=== PATIENT | female | born 1945 | race Caucasian/White ===

== ENCOUNTER → 2017-03-19 | Outpatient (CLI) | payer OTHER ==
[~2017-03-19] MED LIST: AMBIEN 5 MG TABL5 M1 PO; AMITRIPTYLINE H50 M3 PO; B12INJ IM; CALCIUM + VITA1 EACH PO; CVS BUFFERED A325 MG PO; DOXYCYCLINE 10100 MG PO; EXCEDRIN CAPLE1 EACH PO; LIPITOR40 MG PO; LIPITOR80 MG PO; MS CONTIN15 MG PO; MUPIROCIN15 GM; NEURONTIN 300300 M1 PO; PERCOCET PO; PRILOSEC 20 MG20 MG PO; PRILOSEC20 MG PO; TRI-BUFFERED A325 M1 PO; ULTRA-LIGHT RO1 EACH MC; VITAMIN B122500 MCG SUBQ; ZOLOFT50 MG PO
== END ==
LOC: NUC 09:44
DX: M25.562 Pain in left knee (principal); M79.89 Other specified soft tissue disorders; E78.5 Hyperlipidemia, unspecified; E78.00 Pure hypercholesterolemia, unspecified; Z90.710 Acquired absence of both cervix and uterus; Z96.652 Presence of left artificial knee joint

== ENCOUNTER 2017-05-07 05:19 | Inpatient (IN) | payer OTHER ==
[2017-04-21 13:06] LABS: HEMATOCRIT 40.9 % (37.0-47.0); HEMOGLOBIN 13.7 gm/dL (12.0-15.0); MCH 29.5 pg (26.0-34.0); MCHC 33.5 g/dL (28.0-37.0); RBC 4.65 mil/uL (4.20-5.00); RDW 14.5 % (10.5-14.5); URINE BILIRUBIN NEGATIVE (Negative); URINE BLOOD NEGATIVE (Negative); URINE CLARITY CLEAR; URINE COLOR YELLOW; URINE GLUCOSE-RANDOM* NEGATIVE (Negative); URINE KETONES NEGATIVE (Negative); URINE NITRITE-REFLEX NEGATIVE (Negative); URINE PROTEIN (DIPSTICK) NEGATIVE (Negative); URINE SPECIFIC GRAVITY <= 1.005 (1.005-1.035); URINE UROBILINOGEN 0.2 E.U./dl (0.2-1.0); WBC 7.3 thou/uL (4.0-11.0)
[2017-04-21 13:08] LABS: URINE LEUKOCYTES-REFLEX TRACE (Negative)
[2017-04-21 13:15] LABS: ALBUMIN 3.9 g/dL (3.4-5.0); CREATININE 0.8 mg/dL (0.6-1.0); POTASSIUM 3.8 mmol/L (3.5-5.1)
[2017-04-21 13:23] LABS: PROTIME 9.9 Seconds (9.3-11.4)
[~2017-05-07] VITALS: Ht 165.1 cm; Wt 72.1 kg
--- NOTE | ~2017-05-07 | S ---
[facility] [place] [address] SURGICAL PATH RPT PROCEDURE Name: BETZY PARRY Room #: 403-P ADM IN M.R.#: [id number] Admission: 05/07/17 Date of : 49 Discharge: Report #: [id number] Path Case #: [id number] PATHOLOGY REPORT COLLECTION DATE: 05/07/2017 RECEIVED DATE: 05/07/2017 SUBMITTING PHYS: Dr. Andry Birmingham OTHER PHYS: Dr. 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 - No significant increase in neutrophils within the acute inflammation (1-2/high powered field). (IUV:mgr; 05/08/2017) PATHOLOGIST: Beatriz Henderson M.D. REPORT ELECTRONICALLY SIGNED BY: Beatriz Henderson M.D. DATE/TIME: 05/08/2017 16:15 * * * * * * * * * * * * GROSS PATHOLOGY: Received fresh from the OR for frozen section is a container labeled with the patient's name, medical record number, and "left knee synovium". The specimen consists of an unoriented portion of soliz-pink fibrofatty tissue measuring 6.4 x 4 x 1.2 cm. A cash application representative section is submitted for frozen section in one cassette labeled A1. The remainder of the specimen will be representatively submitted by the PA. (MAP:[facility]; 05/07/2017) Additional cash application representative sections of the specimen are submitted in cassettes A2-A4. (SDY; 05/07/2017) FROZEN SECTION DIAGNOSIS: (Jah Parker M.D.) Left knee synovium: - No significant neutrophils identified. - 0-1 neutrophils/high powered field. This was discussed with Dr. Birmingham on 05/07/2017 at 1:39 p.m. (MAP:[facility]; 05/07/2017) Testing performed by [facility] at [address] [place] [address] SURGICAL PATH RPT PROCEDURE Name: BRINDABETZY Davis Room #: 403-P [facility] IN .R.#: [id number] Admission: 05/07/17 Date of : 49 Discharge: Report #: [id number] Path Case #: [id number], [place] [address] CLINICAL HISTORY: History left total knee replacement INITIAL CPT CODE(S): A; 27289, 12769 Professional services performed by [facility] at [address], [place] [address] Technical services performed by [facility] at [address] [place] [address], [facility] [address] [address]. [facility] [address] [place] [address] PHONE: [phone] DIRECTOR: Tad Scott M.D. * * * END OF REPORT * * *
--- NOTE | ~2017-05-07 | O ---
[facility] [place] [place] [address] OPERATIVE REPORT Name: BETZY PARRY Room #: 403-P [facility] IN M.R.#: [id number] Admission: 05/07/17 Attend Phys: Andry Birmingham MD Discharge: 05/09/17 Date of : 49 Report #: [id number] THIS REPORT FOR: //name// CC: Kenia Antonio Birmingham DATE OF SERVICE: 05/07/2017 PREOPERATIVE DIAGNOSIS: Painful left total knee arthroplasty. POSTOPERATIVE DIAGNOSIS: Painful left total knee arthroplasty. PROCEDURE: Revision left total knee arthroplasty including the femoral and tibial components. SURGEON: Andry Birmingham MD HOME SECURITY ALARM INSTALLER: Elena Sahni PA-C INDICATION FOR HOME SECURITY ALARM INSTALLER: Throughout the case, extensive retraction and manipulation of the knee was required. This was reported to me by my assistant art director. ANESTHESIA: LMA with an adductor canal block. IMPLANTS: Salgado [employer] Nephew size 2 revision Legion tibial baseplate with a 160 mm stem and a 6 mm offset wink cutter operator, size 4 left Legion revision Oxinium femoral component with a 160 mm stem and a 6 mm offset wink cutter operator and a size 15 high constrained articular insert. TOURNIQUET TIME: 117 minutes. ESTIMATED BLOOD LOSS: 50 mL. COMPLICATIONS: None. SPECIMENS: Intraoperative frozen sections as well as culture and Gram stain were sent. Intraoperative frozen revealed 0-1 cells per high power field for pathology. CONDITION UPON LEAVING THE OR: Stable. INDICATIONS FOR PROCEDURE: The patient is a 71-year-old female who is over a year out from a left total knee arthroplasty. She has had continued pain in her knee and workup for infection has been negative. Bone scan was performed that showed increased uptake around the femoral as well as tibial component [facility] [place] [place] [address] [place] [address] OPERATIVE REPORT Name: BETZY PARRY Room #: 403-P [facility] IN M.R.#: [id number] Admission: 05/07/17 Attend Phys: Andry Birmingham MD Discharge: 05/09/17 Date of : 49 Report #: [id number] suggesting either infection or loosening. After discussion with her and failure of other conservative measures, she elected for revision total knee arthroplasty with possibility of an antibiotic cement spacer if it was found to be infected. DESCRIPTION OF PROCEDURE: Risks, benefits, alternatives, complications were discussed in detail with the patient including but not limited to risk of anesthesia, risk of damage to nerves, arteries, blood vessels, risk for infection, bleeding, risk for continued knee pain and need for reoperation. Informed consent was obtained from the patient. Left knee was appropriately marked in the preoperative holding area. IV clindamycin was given for preoperative antibiotics. She was brought to the operating room and placed in the supine position on the operating room table. LMA anesthesia was induced without complication. Tourniquet was placed on the left thigh. Left lower extremity was prepped and draped in normal sterile fashion. Timeout was performed properly identifying the patient and procedure as well as the instrumentation and implants. All in the operating room were in agreement. Left lower extremity was exsanguinated, tourniquet was inflated. Tourniquet time was 117 minutes. Previous scar was used and this was opened with 10 blade through the skin and dissection was taken down to the fascia. Deep flaps were developed medially and laterally. Fresh 10 blade was used to make a medial parapatellar arthrotomy. Upon entering the joint, there appeared to be normal joint fluid. Several samples of synovium were taken from both medial, lateral and superior and sent for intraoperative frozen section. These were ultimately found to have 0-1 white cells. ADDENDUM After the knee was hyperflexed and the patella was everted, the femoral component was removed using a combination of flexible and rigid osteotomes. The femoral component was not grossly loose. After removal of the femoral component, knee was hyperflexed. Tibia was subluxed anteriorly. Tibial component was removed also with combination of flexible and rigid osteotomes. The tibial component was not obviously loose either. After removal of the components, the femoral and tibial canals were then subsequently reamed up to a size 13 on the tibia and a cleanup cut on the tibia was performed. The canal for this femur was reamed to a 14 and had good fit. Distal femoral cutting block was placed and a cleanup cut was made. The femoral sizing block was placed and found to be a 4 and had the best fit with a 6 mm offset wink cutter operator in the 6 o'clock position. Chamfer cuts were done. Tibia was sized, found to be a size 2 and had the best fit with a size 6 offset wink cutter operator in the 7 o'clock position. Trial components were placed. Box cut was made, post was placed and the knee was then trialed with a size 13 and then a size 15 highly constrained polyethylene and found to have the best fit with a size 15. After this, the trial components were removed. Final components were built on the back table. Bony ends were thoroughly irrigated with normal saline and the final implants were placed and cemented in place using standard cementation techniques. While [address] [address] OPERATIVE REPORT Name: BETZY PARRY Room #: 403-P [facility] IN M.R.#: [id number] Admission: 05/07/17 Attend Phys: Andry Birmingham MD Discharge: 05/09/17 Date of : 49 Report #: [id number] the cement cured, a periarticular injection consisting of morphine, ropivacaine, epinephrine and Toradol were placed around the knee joint. After the cement cured, the tourniquet was deflated. Hemostasis was obtained with Bovie cautery. Final size 15 highly constrained polyethylene liner was placed. The knee was thoroughly irrigated. A gram of vancomycin was placed deep in the knee joint. Fascia was closed with 0 Vicryl, skin was closed with 2-0 Vicryl, 3-0 nylon. JUAN JOSE dressing was applied. The patient tolerated this procedure well and went to recovery room under care of Anesthesia postoperatively. <ELECTRONICALLY SIGNED> By: Andry Birmingham MD 05/10/17 0931 1629 1700 Andry Birmingham MD /nt
--- NOTE | ~2017-05-07 | EKG ---
[address] [address] ELECTROCARDIOGRAM REPORT Name: BETZY PARRY Room #: [facility] IN [facility]#: [id number] Admission: Attend Phys: Andry Birmingham MD Discharge: Date of : 49 Report #: [id number] THIS REPORT FOR: //name// [facility] Test Date: 2017-04-21 Test Time: 12:59:29 Pat Name: BETZY PARRY Department: Room: Gender: F Foundation Director: felipe cheatham : 1945 Requested By: Andry Birmingham Order Number: [id number] MD: Dario Dee Measurements Intervals Festus Rate: 89 P: 39 LA: 157 QRS: 5 QRSD: 87 T: 11 QT: 365 QTc: 445 Interpretive Statements Sinus rhythm No significant abnormality Compared to ECG 03/06/2016 13:07:20 No significant changes Electronically Signed On 04-22-2017 7:48:07 SUSTAINABILITY OFFICER by Dario Dee [email or web address] <ELECTRONICALLY SIGNED> By: Dario Dee MD, MERGED WITH [facility] 04/22/17 0748 1259 1259 Dario Dee MD, FACC /EPI
[~2017-05-07 05:19] MED LIST changes: -TRI-BUFFERED A325 M1 PO
[2017-05-07 12:38] VITALS: BP 120/70
[2017-05-07 17:15] VITALS: BP 123/66
[2017-05-07 17:45] VITALS: BP 103/51
[2017-05-07 18:15] VITALS: BP 100/62
[2017-05-07 19:24] VITALS: BP 131/61
[2017-05-08 05:35] VITALS: BP 101/58
[2017-05-08 06:43] LABS: HEMATOCRIT 31.7 % (37.0-47.0); HEMOGLOBIN 10.6 gm/dL (12.0-15.0); MCH 29.4 pg (26.0-34.0); MCHC 33.6 g/dL (28.0-37.0); MCV 87.3 fL (80.0-100.0); RBC 3.62 mil/uL (4.20-5.00); RDW 14.4 % (10.5-14.5); WBC 11.4 thou/uL (4.0-11.0)
[2017-05-08 07:35] VITALS: BP 99/50
[2017-05-08 16:50] VITALS: BP 121/46
[2017-05-08 20:19] VITALS: BP 101/56
[2017-05-09 00:25] VITALS: BP 133/56
[2017-05-09 04:33] VITALS: BP 115/48
[2017-05-09 05:39] LABS: HEMATOCRIT 32.5 % (37.0-47.0); MCH 29.6 pg (26.0-34.0); MCHC 33.7 g/dL (28.0-37.0); MCV 87.8 fL (80.0-100.0); RBC 3.7 mil/uL (4.20-5.00); RDW 14.5 % (10.5-14.5); WBC 5.7 thou/uL (4.0-11.0)
[2017-05-09 08:08] VITALS: BP 108/51
[2017-05-09] MEDS ORDERED: MS CONTIN15 MG PO (14:21)
[2017-05-09] MEDS ORDERED: TRI-BUFFERED A325 M1 PO (14:22)
[2017-05-09] MEDS ORDERED: NEURONTIN 300300 M1 PO (14:22)
[2017-05-09] MEDS ORDERED: PERCOCET PO (14:22)
[2017-05-09 14:53] VITALS: BP 108/51
== END 2017-05-09 15:55 | disposition home or self-care (01) | DRG 468 ==
LOC: TBA 05:19 → 4N 05:19 → PRE 05:32 → 4N 17:14 → ENTRNSPT 05-09 15:47 → EDTRNSPTSTS 05-09 15:48 → 4N 05-09 15:55
PROVIDERS: Orthopaedic Surgery
PROC: 0SRD0J9 Replacement of Left Knee Joint with Synthetic Substitute, Cemented, Open Approach (ICD-10-PCS; principal; 2017-05-07)
PROC: 0SPD0JZ Removal of Synthetic Substitute from Left Knee Joint, Open Approach (ICD-10-PCS; principal; 2017-05-07)
DX: M17.12 Unilateral primary osteoarthritis, left knee (principal); Z88.0 Allergy status to penicillin; Z88.2 Allergy status to sulfonamides
CPT/HCPCS: 10790; 50010; 50101; 50415; 50954; 51130; 51225; 51771; 53000; 53078; 55375; 56527; 56528; 57095; 62110; 62900; 70005

== ENCOUNTER → 2019-12-14 | Outpatient (CLI) | payer OTHER ==
[~2019-12-14] MED LIST changes: +TRI-BUFFERED A325 M1 PO
== END ==
LOC: NUC 10:09
PROVIDERS: ATTEND Orthopaedic Surgery
DX: T84.84XD Pain due to internal orthopedic prosthetic devices, implants and grafts, subsequent encounter (principal)